=== PATIENT | male | born 1985 | race Caucasian/White ===

== ENCOUNTER → 2023-05-09 16:05 | Outpatient (CLI) | payer OTHER, SELFPAY ==
--- NOTE | 2023-05-09 11:42 | DI.RAD_ITS ---
Exam(s) XR WRIST LT COMP NAVICULAR EXAM: XR WRIST LT COMP NAVICULAR CLINICAL HISTORY: ACUTE LEFT WRIST PAIN M25.5632 INJURY LEFT WRIST S69.92XA. TECHNIQUE: 2D digital imaging was performed. COMPARISON: No exams were available for comparison FINDINGS: 3 views No evidence of fracture or dislocation nor significant ulnar variance. Bone density normal. No osse ous lesions. No erosions. No radiopaque foreign body. Scaphoid and scapholunate distance are aga l. IMPRESSION: No significant osseous findings in the wrist. DATA REPOSITORY: RADIATION DOSE DELIVERED:
== END ==
PROVIDERS: Visit Provider Family Medicine
DX: M25.562 Pain in left knee (principal)
CPT/HCPCS: 73110

== ENCOUNTER 2025-02-14 03:56 | Outpatient (CLI) | payer OTHER, SELFPAY ==
--- NOTE | 2025-02-14 10:35 | DI.MRI_ITS ---
Exam(s) MR UPPER JOINT LT WO EXAM: MR UPPER JOINT LT WO CLINICAL HISTORY: eval l shoulder pain and weakness,lt rotator cuff tear,m75.102,r29.89. TECHNIQUE: Multiplanar multisequence MRI was performed. COMPARISON: No exams were available for comparison FINDINGS: BONES: There is no fracture or contusion pattern. JOINTS: There are mild degenerative changes seen at the acromioclavicular joint. The glenohumeral joint is normal. There is no joint effusion present. TENDONS: Supraspinatus: Unremarkable. Infraspinatus: Unremarkable. Subscapularis: Unremarkable. Teres Minor: Unremarkable. Biceps and [place]: Unremarkable. MUSCLES: Unremarkable. GLENOID LABRUM: Unremarkable on this noncontrast examination. SOFT TISSUES: Unremarkable. LIGAMENTS: Unremarkable. OTHER: Subacromial and subdeltoid bursae are unremarkable. IMPRESSION: 1. There are mild degenerative changes seen at the acromioclavicular joint. 2. There is no evidence of a rotator cuff or labral tear on this noncontrast examination. DATA REPOSITORY:
== END 2025-02-14 04:16 ==
LOC: DI 03:56
PROVIDERS: Visit Provider Student in an Organized Health Care Education/Training Program
DX: R29.898 Other symptoms and signs involving the musculoskeletal system (principal); M75.102 Unspecified rotator cuff tear or rupture of left shoulder, not specified as traumatic
CPT/HCPCS: 73221